=== PATIENT | female | born 1985 | race African-American/Black ===

== ENCOUNTER 2017-03-29 19:04 | Emergency (ER) | payer OTHER ==
[~2017-03-29] VITALS: Ht 167.6 cm; Wt 99.8 kg
[2017-03-29 20:13] VITALS: BP 152/93
[2017-03-29] MEDS ORDERED: HYDR-971 PO (20:37)
--- NOTE | 2017-03-29 20:39 | PHYS DOC ---
General Chief Complaint: FOOT INJURY PAIN Stated Complaint: LEFT FOOT TOE INJURY Time Seen by MD: 20:35 Source: patient Exam Limitations: no limitations Problems: History of Present Illness Initial Comments Patient is a 31-year-old female who comes to the ED complaining of left hallux pain. Patient states that she accidentally stubbed her toe on a door jam several days ago. She's had severe pain at the left hallux since that time. She is unable to take NSAIDs due to prior gastric bypass surgery and GI bleed, [id number] Tylenol has not been controlling her discomfort. She denies numbness tingling weakness or radiating symptoms and has come to the emergency department because she fears it may be broken. She denies any other injuries suffered from the incident and states she follows at [facility]. Onset: last week Severity: severe Pain/Injury Location: left 1st toe Method of Injury: direct blow Modifying Factors: worse with jarring, worse with movement, improves with rest Allergies: Coded Allergies: NSAIDS (Non-Steroidal Anti-Inflamma (Verified Allergy, Mild, 03/29/17) warfarin (Verified Allergy, Mild, Rash, 03/29/17) Past Medical History Medical History: other (anemia, GI bleed, morbid obesity) Surgical History: other (gastric bypass) Social History Smoker: non-smoker Alcohol: none Drugs: none Review of Systems Constitutional: denies chills, denies fever Respiratory: denies cough, denies shortness of breath Cardiovascular: denies chest pain, denies palpitations Gastrointestinal: denies nausea, denies vomiting Musculoskeletal: see HPI Skin: see HPI Psychiatric/Neurological: see HPI Physical Exam General Appearance: no apparent distress, obese Neck: non-tender, supple Cardiovascular/Respiratory: normal peripheral pulses, normal breath sounds Back: no CVA tenderness, no vertebral tenderness Ankles: bilateral ankle non-tender, bilateral ankle normal inspection, bilateral ankle normal range of motion, bilateral ankle no evidence of injury Feet: right foot non-tender, right foot normal inspection, right foot normal range of motion, right foot no evidence of injury, left foot other (swelling ecchymosis and exquisite tenderness noted at the IP joint of the left great toe. Due to x-ray findings tendon complexes are not tested the digit does appear to be neurovascularly intact.) Neurologic/Tendon: normal sensation, normal motor functions, responds to pain Psychiatric: alert, oriented x 3 Skin: warm/dry Orders, Labs, Meds Toes left: Fracture noted at the proximal phalanx of the hallux involving the joints Patient neurovascularly intact after postop shoe in place. I discussed signs and symptoms to monitor and indications for urgent return. Patient has to follow-up at [facility] for orthopedics referral she agrees to do so. Departure Time of Disposition: 20:38 Disposition: 01 HOME, SELF-CARE Diagnosis: left hallux fracture Condition: GOOD Patient Instructions: RICE - Routine Care for Injuries, [id number] Additional Instructions: Nonweightbearing crutches only. Wear postop shoe except when bathing. RICE, see handout. Prescription: Tylenol #3 start pack was dispensed to you, [place] 5 mg quantity 20 Drink extra fluids and take [id number] stool softeners to avoid opiate associated constipation. Take medications with food to avoid nausea and vomiting. Follow-up at [facility] tomorrow for orthopedics referral. Return to ED with new or changing symptoms. GEORGIE QUEEN DO Mar 29, 2017 20:39
[2017-03-29] MEDS ORDERED: HYDROcodone/APAP 7.5/325MG 1 TAB TABLET PO ONE (21:00)
[2017-03-29] MEDS ORDERED: ONDANSETRON ODT 4 MG TAB.RAPDIS PO ONE (21:00)
[2017-03-29] MEDS ORDERED: ACETAMINOPHEN/CODEINE 300/30MG 4TABLET STARTPACK. PO ONE (21:00)
--- NOTE | 2017-03-30 07:45 | RAD ---
Indication: Pain, injury. Technique: 3 views of the left first digit including an AP view of the foot are submitted for review. No comparison is available. Findings: There is a fracture of the proximal aspect of the distal phalanx of the first digit with intra-articular extension. Fracture is not displaced. There is soft tissue swelling. Impression: First distal phalanx fracture with intra-articular extension. This appears acute and traumatic.
== END 2017-03-29 20:57 | disposition home or self-care (01) ==
LOC: ER 19:04
DX: S92.412A Displaced fracture of proximal phalanx of left great toe, initial encounter for closed fracture (principal); Z98.84 Bariatric surgery status; Z86.2 Personal history of diseases of the blood and blood-forming organs and certain disorders involving the immune mechanism; Z88.6 Allergy status to analgesic agent; Z88.8 Allergy status to other drugs, medicaments and biological substances; W23.0XXA Caught, crushed, jammed, or pinched between moving objects, initial encounter; Y93.89 Activity, other specified; Y92.89 Other specified places as the place of occurrence of the external cause; Y99.8 Other external cause status
CPT/HCPCS: 73660; 99284; Q0162